=== PATIENT | female | born 1965 | race Caucasian/White ===

== ENCOUNTER 2018-07-01 14:36 | Outpatient (CLI) | payer MEDICAID | END 2018-07-01 14:37 | disposition home or self-care (01) | LOC: CARDIO 14:36 ==

== ENCOUNTER 2018-07-02 09:02 | Outpatient (CLI) | payer MEDICAID | END 2018-07-02 09:03 | disposition home or self-care (01) | LOC: LAB 09:02 ==

== ENCOUNTER 2018-07-05 13:37 | Outpatient (CLI) | payer MEDICAID | END 2018-07-05 13:38 | disposition home or self-care (01) | LOC: RAD 13:37 | DX: R60.9 Edema, unspecified (principal) ==

== ENCOUNTER 2018-09-28 10:29 | Outpatient (CLI) | payer MEDICAID | END 2018-09-28 10:30 | disposition home or self-care (01) | LOC: LAB 10:29 ==